=== PATIENT | female | born 1965 | race Caucasian/White ===

== ENCOUNTER 2024-02-28 13:17 | Emergency (ER) | payer BC, SELFPAY ==
[2024-02-28 13:18] VITALS: BP 144/125; PULSE 77; RESP 16; TEMP 35.6; O2SAT 98
--- NOTE | 2024-02-28 13:40 | RAD_ITS ---
STUDY: XR Knee Complete 4 Views or More 02/28/2024 2:09 PM REASON FOR EXAM: Female, 58 years old. pain TECHNIQUE: XR Knee Complete 4 Views RIGHT COMPARISON: None FINDINGS: Normal visualized distal femur. Normal visualized proximal tibia and fibula. Normal proximal tibiofibular articulation. There is moderate degenerative arthrosis of the medial femorotibial compartment with moderate joint space narrowing. There is mild degenerative arthrosis of the lateral femorotibial compartment. There is moderate degenerative arthrosis of the patellofemoral articulation. The soft tissue structures are unremarkable. RAD/Knee 4 or More Views IMPRESSION: Degenerative arthrosis. Electronically Signed: Neftaly Marcelino MD at 14:10 EDT ,
--- NOTE | 2024-02-28 13:42 | EX.ED.DYSGE1 ---
HPI <ARA Alfonso - Last Filed: 02/28/24 14:20> History of Present Illness Chief Complaint: Lower Extremity Injury Narrative Narrative: 2 days ago patient was walking and felt a pop in her right knee. Since then she has had pain with ambulating and states she sat around most of the weekend and walked on her tiptoes. When she tried to walk again today she had several episodes of popping or clicking and the pain worsened to the point she could not really bear weight. She had her son-in-law bring her in for evaluation. No history of fall or direct trauma. No swelling. No weakness or numbness or tingling. [facility] <ARA Alfonso - Last Filed: 02/28/24 14:20> [facility] Medical History (Updated 02/28/24 @ 14:16 by ARA Alfonso) GERD (gastroesophageal reflux disease) Anxiety Allergy/AdvReac Type Severity Reaction Status Date / Time No Known Allergies Allergy Verified 02/28/24 13:20 Social History Smoking Status: Former smoker ROS <ARA Alfonso - Last Filed: 02/28/24 14:20> ROS ED ROS Narrative Neuro: Negative for motor/sensory dysfunction. Musc: Positive for right knee pain. EXAM <ARA Alfonso Last Filed: 02/28/24 14:20> Physical Exam Narrative Exam Narrative: CONST: Patient sitting in no acute distress. EYES: Normal inspection. NECK: Normal inspection. SKIN: Color normal, no rash, warm, dry, intact. EXTREMITIES: Normal appearance of both lower extremities. No knee effusion. No bony tenderness, slight tenderness right popliteal region. Able to slightly extend the knee but limited by pain. Pain with all motions including anterior/posterior and varus and valgus testing but no significant laxity. Distal strength, sensation, 2+ DP pulse intact. NEURO: Alert and answering questions appropriately. PSYCH: Normal affect. Const Vital Signs: 02/28/24 13:18 Temperature 96.1 F L Temperature Source Temporal Pulse Rate 77 Respiratory Rate 16 Blood Pressure 144/125 H Blood Pressure Mean 131 Pulse Ox 98 <Dr. Estela Romano, DO - Last Filed: 02/28/24 15:53> Physical Exam Const Vital Signs: 02/28/24 13:18 Temperature 96.1 F L Temperature Source Temporal Pulse Rate 77 Respiratory Rate 16 Blood Pressure 144/125 H Blood Pressure Mean 131 Pulse Ox 98 [facility] <ARA Alfonso - Last Filed: 02/28/24 14:20> [facility] Radiography Diagnostic Testing: Clinical Impression(s) from Imaging Studies Knee X-Ray 02/28/24 13:40 IMPRESSION: Degenerative arthrosis. Electronically Signed: Neftaly Marcelino MD at 14:10 EDT Reading Location ID and State: [facility] / [place] , Service support , ED attending interpretation of right knee shows no fracture or dislocation. <Dr. Estela Romano DO - Last Filed: 02/28/24 15:53> [facility] Narrative Medical decision making narrative: I have personally performed a face to face assessment of the patient and have reviewed the SYDNI Note. I performed a substantive portion of the visit including all aspects of the following. My hua findings include: History is [patient presents emergency department complaint of injury to her right knee. Patient states that 3 days ago she was walking and felt a pop in her knee. She has had discomfort since that time. States she tried to bear some weight on it and felt some more pops and cannot put any weight on her knee. There was no fall or injury otherwise.] Exam is [HEENT-PERRLA, EOMI. Cranial nerves II through XII grossly intact. TMs clear. Mucous membranes moist. No adenopathy. Cardiovascular-regular rate and rhythm without murmur or ectopy Lungs-clear to auscultation, chest wall stable without crepitus or subcu emphysema Abdomen-normoactive bowel sounds, soft, nontender, no rebound or rigidity, no peritoneal signs. Extremities-intact ?4. Right knee-no evidence of effusion noted. There is no erythema or warmth. She does have pain with flexion and extension of the knee diffusely. Ligamentous exam difficult as she does not tolerate well due to pain but no significant laxity noted with varus or valgus stress or anterior or posterior drawer test. She is neurovascular intact distally.] Medical Decison Making [4 view x-rays of the right knee obtained interpreted by myself as no evidence of fracture or dislocation. Radiology in agreement. At this point suspect possibility for ligamentous or meniscal injury. Will place patient in knee immobilizer and give crutches. She does not anything for pain. She will follow-up with orthopedics as she will be referred to Dr. Enid Cervantes for follow-up.] Other additions or changes: [None] Radiography Diagnostic Testing: Clinical Impression(s) from Imaging Studies Knee X-Ray 02/28/24 13:40 IMPRESSION: Degenerative arthrosis. Electronically Signed: Neftaly Marcelino MD at 14:10 EDT Reading Location ID and State: [facility] / [place] , Service support , Discharge Plan Triage Chief Complaint: Lower Extremity Injury ED Midlevel Provider: Diana Torres ED Provider: Estela Romano Dx/Rx/DC Orders Clinical Impression: Acute pain of right knee Instructions: Knee Pain Primary Care Provider: Misha Lundberg Referrals: Misha Lundberg MD [Primary Care Provider] - Maulik Mccloud MD [Med Staff - Active Staff] - Activity Restrictions/Additional Instructions: Wear the knee immobilizer and call the orthopedic doctor on Thursday for an appointment. Take ibuprofen every 6 hours as needed. Print Language: Uzbek Disposition Disposition: Home, Self Care Discharge Date/Time: 02/28/24 14:46
[2024-02-28] MEDS: Ibuprofen 600 MG Tablet PO (13:46)
== END 2024-02-28 14:46 | disposition home or self-care (01) ==
PROVIDERS: Emergency Provider Emergency Medicine; PCP Internal Medicine; Visit Provider Emergency Medicine
DX: M25.561 Pain in right knee (principal); K21.9 Gastro-esophageal reflux disease without esophagitis; Z87.891 Personal history of nicotine dependence
CPT/HCPCS: 73564; 99284